=== PATIENT | male | born 1975 | race Caucasian/White ===

== ENCOUNTER 2017-10-10 03:30 | Emergency (ER) | payer OTHER | END 2017-10-10 05:49 | disposition home or self-care (01) | LOC: FTE 03:30 | DX: S90.31XA Contusion of right foot, initial encounter (principal); S20.212A Contusion of left front wall of thorax, initial encounter; S39.012A Strain of muscle, fascia and tendon of lower back, initial encounter; S00.03XA Contusion of scalp, initial encounter; F17.210 Nicotine dependence, cigarettes, uncomplicated; Y08.89XA Assault by other specified means, initial encounter | CPT/HCPCS: 70450; 71100; 72100; 73630; 99284-25 ==

== ENCOUNTER 2017-11-22 10:07 | Emergency (ER) | payer OTHER | END 2017-11-22 12:15 | disposition home or self-care (01) | LOC: FTE 10:07 | DX: S69.91XA Unspecified injury of right wrist, hand and finger(s), initial encounter (principal); Y04.0XXA Assault by unarmed brawl or fight, initial encounter | CPT/HCPCS: 29130; 73130-RT; 99283-25 ==

== ENCOUNTER 2018-02-19 05:20 | Emergency (ER) | payer OTHER ==
[2018-02-19] MEDS: HYDROCODONE/APAP (5/325) TAB PO (06:40)
[2018-02-19] MEDS: DIPHTH/TET/ACEL PERTUSS (ADULT) 0.5 ML VIAL IM* (06:42)
[2018-02-19] MEDS: LIDOCAINE 1%/EPI (MDV) 50 ML INJ INJ (06:49)
== END 2018-02-19 08:16 | disposition home or self-care (01) ==
LOC: FTE 05:20
DX: S01.81XA Laceration without foreign body of other part of head, initial encounter (principal); F17.210 Nicotine dependence, cigarettes, uncomplicated; X99.9XXA Assault by unspecified sharp object, initial encounter; Z23 Encounter for immunization
CPT/HCPCS: 12011; 70450; 90471; 90715; 99284-25

== ENCOUNTER 2018-02-21 13:40 | Emergency (ER) | payer SELFPAY, OTHER | END 2018-02-21 14:35 | disposition left against medical advice (07) | LOC: E/R 13:40 | DX: Z53.21 Procedure and treatment not carried out due to patient leaving prior to being seen by health care provider (principal) ==

== ENCOUNTER 2019-03-20 06:19 | Emergency (ER) | payer OTHER ==
[2019-03-20] MEDS: LIDOCAINE 2%/EPI MPF (SDV) 20 ML VIAL INJ (06:24)
[2019-03-20 06:39] LABS: ADD MAN DIFF? NO
[2019-03-20 06:43] LABS: WHITE BLOOD COUNT 4.7 10^3/ul (4.8-10.8)
[2019-03-20 06:43] LABS: BASOPHILS % 0.6 % (0.0-2.0); EOSINOPHILS % 0.4 % (0.0-7.0); HEMATOCRIT 39.4 % (42.0-52.0); LYMPHOCYTES # 1.2 10^3/ul (0.8-2.9); LYMPHOCYTES % 24.6 % (15.0-51.0); MEAN CORPUSCULAR HEMOGLOBIN 31.5 pg (29.0-33.0); MEAN CORPUSCULAR HGB CONC 35.5 g/dl (32.0-37.0); MEAN CORPUSCULAR VOLUME 88.7 fl (82.0-101.0); MEAN PLATELET VOLUME 9.2 fl (7.4-10.4); MONOCYTE # 0.4 10^3/ul (0.3-0.9); MONOCYTES % 8.3 % (0.0-11.0); NEUTROPHIL # 3.1 10^3/ul (1.6-7.5); NEUTROPHILS % 65.9 % (39.0-77.0); PLATELET COUNT 244 10^3/UL (140-415); RED BLOOD COUNT 4.44 10^6/ul (4.70-6.10)
[2019-03-20] MEDS: SOD CHLORIDE 0.9% 100 ML (06:49)
[2019-03-20] MEDS: IOHEXOL 300MG/ML 150 ML BTL (06:49)
[2019-03-20] MEDS: SOD CHLORIDE 0.9% 1,000 ML IV (06:56)
[2019-03-20] MEDS: ONDANSETRON 4 MG INJ IV (06:57)
[2019-03-20] MEDS: morphine 4 MG/ML VIAL IV (06:58)
[2019-03-20 07:04] LABS: INR 1.04; PARTIAL THROMBOPLASTIN TIME 24.9 Sec (23.0-35.0); PROTIME 13.7 Sec (11.9-14.9); PT RATIO 1.1
[2019-03-20 07:05] LABS: Estimated GFR > 60 mL/min (>60)
[2019-03-20 07:18] LABS: BARBITURATES Negative (NEGATIVE); BENZODIAZEPINES Negative (NEGATIVE); CANNABINOIDS Positive (NEGATIVE); COCAINE Negative (NEGATIVE); OPIATES Negative (NEGATIVE)
[2019-03-20 07:29] LABS: ANION GAP 15 (5-13); BLOOD UREA NITROGEN 18 mg/dl (7-20); CALCIUM 9.6 mg/dl (8.4-10.2); CARBON DIOXIDE 28 mmol/L (21-31); CHLORIDE 102 mmol/L (97-110); CREATININE 0.95 mg/dl (0.61-1.24); GLUCOSE 116 mg/dl (70-220); POTASSIUM 3.8 mmol/L (3.5-5.1); SODIUM 145 mmol/L (135-144)
[2019-03-20 07:41] LABS: AMPHETAMINE/METHAMPHETAMINE POSITIVE (NEGATIVE)
[2019-03-20 08:21] LABS: ETHANOL < 10.0 mg/dl (0-0)
== END 2019-03-20 09:38 | disposition home or self-care (01) ==
LOC: E/R 06:19
DX: S21.111A Laceration without foreign body of right front wall of thorax without penetration into thoracic cavity, initial encounter (principal); X99.8XXA Assault by other sharp object, initial encounter
CPT/HCPCS: 12002; 36415; 71045; 71260; 74177; 80048; 80307; 85025; 85610; 85730; 96374; 96375; 99285-25

== ENCOUNTER 2019-03-22 13:42 | Emergency (ER) | payer OTHER | END 2019-03-22 15:12 | disposition home or self-care (01) | LOC: FTE 15:12 | DX: Z48.01 Encounter for change or removal of surgical wound dressing (principal) | CPT/HCPCS: 99281; Z7502 ==

== ENCOUNTER 2019-04-07 12:13 | Emergency (ER) | payer OTHER ==
[2019-04-07] MEDS: ACETAMINOPHEN 325 MG TAB PO (13:00)
== END 2019-04-07 13:44 | disposition home or self-care (01) ==
LOC: FTE 13:44
DX: M25.532 Pain in left wrist (principal); F17.210 Nicotine dependence, cigarettes, uncomplicated; Z48.02 Encounter for removal of sutures
CPT/HCPCS: 29125; 73110-LT